=== PATIENT | female | born 2000 | race Asian ===

== ENCOUNTER 2018-01-21 15:52 | Emergency (ER) | payer OTHER ==
[~2018-01-21] VITALS: Ht 152.4 cm; Wt 59.0 kg
[2018-01-21 15:59] VITALS: Ht 152.4 cm; Wt 59.0 kg
[2018-01-21 19:37] LABS: microscopic required? NO
[2018-01-21 19:48] LABS: UA SPECIFIC GRAVITY <=1.005 (1.005-1.035); urine erythrocyte NEGATIVE (NEGATIVE)
[2018-01-21 20:05] LABS: BASOPHIL % 0.6 % (0-2); PLATELET COUNT 376 x10^3mcL (130-400); RED CELL DISTRIBUTION WIDTH 14.4 % (11.5-14.5)
[2018-01-21 20:12] LABS: CALCIUM 8.9 mg/dL (8.5-10.1); CARBON DIOXIDE 22.8 mmol/L (21-32); CHLORIDE SERUM 103 mmol/L (98-107); CREATININE SERUM 0.6 mg/dL (0.6-1.0); GFR1 > 60 mL/min; GLUCOSE SERUM 93 mg/dL (74-106); POTASSIUM SERUM 3.7 mmol/L (3.5-5.1); SODIUM SERUM 136 mmol/L (136-145)
[2018-01-21 20:35] LABS: CALCIUM 9.1 mg/dL (8.5-10.1); CARBON DIOXIDE 22.3 mmol/L (21-32); CHLORIDE SERUM 103 mmol/L (98-107); CREATININE SERUM 0.6 mg/dL (0.6-1.0); GFR1 > 60 mL/min; GLUCOSE SERUM 93 mg/dL (74-106); POTASSIUM SERUM 3.8 mmol/L (3.5-5.1); SODIUM SERUM 137 mmol/L (136-145)
[2018-01-21 20:42] LABS: ALBUMIN 3.7 g/dL (3.4-5.0); ALKALINE PHOSPHATASE 55 U/L (46-116); ALT/SGPT 51 U/L (14-59); AST/SGOT 25 U/L (15-37); BILIRUBIN TOTAL 0.24 mg/dL (0.20-1.00); TOTAL PROTEIN, SERUM 7.8 g/dL (6.4-8.2)
[2018-01-21 22:05] VITALS: BP 102/57
== END 2018-01-21 22:05 | disposition home or self-care (01) ==
LOC: ED 15:52
PROVIDERS: Emergency Medicine
DX: O26.91 Pregnancy related conditions, unspecified, first trimester (principal); R10.9 Unspecified abdominal pain; Z3A.08 8 weeks gestation of pregnancy
CPT/HCPCS: 36415; Q0092

== ENCOUNTER 2018-01-22 07:29 | Emergency (ER) | payer OTHER ==
[~2018-01-22] VITALS: Ht 152.4 cm; Wt 59.0 kg
[2018-01-22 07:36] VITALS: Ht 152.4 cm; Wt 59.0 kg
[2018-01-22 09:29] VITALS: BP 97/61
== END 2018-01-22 09:29 | disposition home or self-care (01) ==
LOC: ED 07:29
DX: O26.891 Other specified pregnancy related conditions, first trimester (principal); J45.909 Unspecified asthma, uncomplicated; Z3A.08 8 weeks gestation of pregnancy

== ENCOUNTER 2018-02-20 20:43 | Emergency (ER) | payer OTHER ==
[~2018-02-20] VITALS: Ht 152.4 cm; Wt 59.9 kg
[2018-02-20 20:49] VITALS: Ht 152.4 cm; Wt 59.9 kg
[2018-02-20 22:28] LABS: UA SPECIFIC GRAVITY 1.025 (1.005-1.035); microscopic required? YES; urine erythrocyte 2+ (NEGATIVE)
[2018-02-20 23:41] VITALS: BP 105/66
== END 2018-02-20 23:41 | disposition home or self-care (01) ==
LOC: ED 20:43
PROVIDERS: Emergency Medicine
DX: O02.1 Missed abortion (principal)

== ENCOUNTER 2019-09-27 09:08 | Emergency (ER) | payer OTHER ==
[~2019-09-27] VITALS: Ht 154.9 cm; Wt 63.5 kg
[2019-09-27 09:17] VITALS: BP 110/60; Ht 154.9 cm; Wt 63.5 kg
== END 2019-09-27 11:30 | disposition home or self-care (01) ==
LOC: ED 09:08
DX: M25.512 Pain in left shoulder (principal); M24.812 Other specific joint derangements of left shoulder, not elsewhere classified; J45.909 Unspecified asthma, uncomplicated; X58.XXXA Exposure to other specified factors, initial encounter; Y93.89 Activity, other specified; Y92.89 Other specified places as the place of occurrence of the external cause; Y99.8 Other external cause status
CPT/HCPCS: Q0092